=== PATIENT | female | born 1995 | race Caucasian/White ===

== ENCOUNTER 2017-05-01 13:38 | Outpatient (CLI) | payer OTHER ==
--- NOTE | 2017-05-01 15:55 | DIAGNOSTIC IMAGING REPORT ---
PROCEDURE: US OB DETAILED ANATOMIC INDICATION: ANATOMY TECHNIQUE: Edwards scale, color, and spectral Doppler images of the second trimester gravid uterus were obtained. COMPARISON: None. FINDINGS: Single intrauterine with transverse presentation and posterior placenta without previa. Heart rate 144 bpm. Amniotic fluid is unremarkable. The anatomic survey, including the intracranial anatomy, facial structures, nuchal region, chest and diaphragm, stomach and abdomen, three-vessel cord and cord insertion, bladder and pelvis, kidneys and extremities, is within normal limits. Four-chamber heart view, outflow tracts and spine not well visualized due to position. BPD 4.5 cm, 19 weeks 4 days; head circumference 16.4 cm, 19 weeks 1 day; abdominal circumference 13.7 cm, 19 weeks 1 day; femur length 2.9 cm, 18 weeks 5 days. Composite age of 19 weeks 1 day. FRANK 09/24/2017. IMPRESSION: 1. Single live intrauterine , 19 weeks 1 day 2. FRANK 09/24/2017 3. spine, four-chamber heart view and outflow tracts not well visualized. Remainder of anatomic survey is unremarkable. Recommend follow-up ultrasound in 4 weeks.
== END 2017-05-01 23:00 ==
LOC: US SRH 13:38
DX: Z34.02 Encounter for supervision of normal first pregnancy, second trimester (principal); Z3A.19 19 weeks gestation of pregnancy

== ENCOUNTER → 2017-05-29 | Outpatient (CLI) | payer OTHER ==
--- NOTE | 2017-05-29 11:46 | DIAGNOSTIC IMAGING REPORT ---
PROCEDURE: US OB RE-EVALUATION INDICATION: FOUR-CHAMBER HEART VIEW/FLOW TRACTS NOT WELL VISUALIZED TECHNIQUE: Edwards scale, color and spectral Doppler images of the gravid uterus. COMPARISON: OB ultrasound 05/01/2017. FINDINGS: Single intrauterine with vertex presentation and posterior fundal placenta. Trace amniotic fluid with largest pocket measuring 1 cm. Cervix measures 3.2 cm without funneling. Heart rate 153 bpm. Visualized spine is unremarkable. Sagittal cervical spine not well visualized due to position. Outflow tracts not well visualized either. On the four-chamber view, the heart takes up a large portion of the chest cavity which may be due to cardiac enlargement versus poor expansion inches due to lack of amniotic fluid. There is bilateral renal pelviectasis: Left 4.9 mm, right 5.7 mm. Stomach and bladder are unremarkable. BPD and head circumference not obtained due to positioning. Abdominal circumference 17.6 cm, 22 weeks 4 days and femur length 4.0 cm, 22 weeks 5 days. Limited composite age 22 weeks 5 days with FRANK 09/27/2017. IMPRESSION: 1. Single live intrauterine , vertex, approximately 22 weeks 5 days (limited growth parameters) 2. FRANK 09/27/2017, 3 days delayed growth 3. Interval oligohydramnios (largest pocket 1 cm) 4. Incomplete visualization of the spine and outflow tracts. Heart takes up most of the chest cavity, possible cardiomegaly. New bilateral renal pelviectasis. 5. Results discussed with Dr. Menjivar
== END ==
LOC: US SRH 09:45
DX: Z34.02 Encounter for supervision of normal first pregnancy, second trimester (principal); Z3A.22 22 weeks gestation of pregnancy